=== PATIENT | female | born 1970 | race Caucasian/White ===

== ENCOUNTER → 2018-08-18 | Outpatient (CLI) | payer BC | LOC: FIMAGING 11:34 | PROVIDERS: ATTEND Orthopaedic Surgery | DX: Z01.818 Encounter for other preprocedural examination (principal); M17.12 Unilateral primary osteoarthritis, left knee ==

== ENCOUNTER 2018-08-30 06:13 | Observation (INO) | payer BC ==
--- NOTE | 2018-08-30 05:56 | PDHPUP ---
History & Physical Update H&P update statement: This history and physical update is based on an assessment of the patient which was completed after admission or registration (within 24 hours), but prior to the surgery/procedure. H&P update: H&P reviewed & patient examined, no change in patient's condition since H&P completed
[~2018-08-30 06:13] MED LIST: ROPIVACAINE 0.2% 80 MG, EPINEPHrine 0.2 MG, KETOROLAC TROMETHAMINE 30 MG in SYRINGE 0 ML IU ONE; TRANEXAMIC ACID 3,000 MG in NS (SYRINGE) 50 ML IRR ONE
[2018-08-30] MEDS ORDERED: FAMOTIDINE 20 MG TAB PO ONE (06:26)
[2018-08-30] MEDS ORDERED: DEXAMETHASONE 4 MG/ML VIAL IVP ONE (06:26)
[2018-08-30] MEDS ORDERED: LR 1,000 ML IV ONE (06:26)
[2018-08-30] MEDS ORDERED: ceFAZolin 2 GM/DEXTROSE 100 ML IV ONE (06:26)
[2018-08-30] MEDS ORDERED: ACETAMINOPHEN 325 MG TAB PO ONE (06:26)
[2018-08-30] MEDS ORDERED: MIDAZOLAM 2 MG/2 ML VIAL IVP ONE (06:38)
--- NOTE | 2018-08-30 06:39 | PDANEPAE ---
ANE Past Medical History - Cardiovascular History Hx Hypertension: No Hx Arrhythmias: No Hx Chest Pain: No Hx Coronary Artery / Peripheral Vascular Disease: No Hx CHF / Valvular Disease: No Hx Palpitations: No - Pulmonary History Hx COPD: No Hx Asthma/Reactive Airway Disease: No Hx Recent Upper Respiratory Infection: No Hx Oxygen in Use at Home: No Hx Sleep Apnea: Yes Sleep Apnea Screening Result - Last Documented: Positive Pulmonary History Comment: kush positive- no devices currently - Neurologic History Hx Cerebrovascular Accident: No Hx Seizures: No Hx Dementia: No - Endocrine History Hx Diabetes: No Hypothyroid: No Hyperthyroid: No Obesity: yes, moderate - Renal History Hx Renal Disorders: No - Liver History Hx Hepatic Disorders: No - Neurological & Psychiatric Hx Hx Neurological and Psychiatric Disorders: No - Cancer History Hx Cancer: No - Congenital Disorder History Hx Congenital Disorders: No - GI History GERD: no Hx Gastrointestinal Disorders: No - Other Health History Other Health History: wears glasses or contacts. dry skin. seasonal allergies - Chronic Pain History Chronic Pain: Yes - Surgical History Prior Surgeries: 03/2018 cartiva implant on right big toe. left knee 1997 acl replacement. 2006 torn acl ANE Review of Systems Review of Systems: - Exercise capacity Exercise capacity: <4 METS METS (RN): 4 METS ANE Patient History - Allergies Allergies/Adverse Reactions: No Known Allergies Allergy (Verified 08/14/18 12:26) - Home Medications Home Medications: DIAZEPAM 08/14/18 [Last Taken Unknown] Flonase Allergy Relief 08/14/18 [Last Taken Unknown] Ibuprofen 08/14/18 [Last Taken Unknown] Meloxicam 08/14/18 [Last Taken Unknown] - Anes Hx Anes Hx: no prior problems - Smoking Hx Smoking Status: Never smoked - Alcohol Use Alcohol Use: Rarely - Family Anes Hx Family Anes Hx: neg - N/A Family Hx Anesthesia Complications: none ANE Labs/Vital Signs - Vital Signs Height: 160.02 cm Weight: 90.718 kg ANE Physical Exam - Airway Neck exam: FROM Mallampati Score: Class 2 Mouth exam: normal dental/mouth exam - Pulmonary Pulmonary: no respiratory distress, no rales or rhonchi, clear to auscultation - Cardiovascular Cardiovascular: regular rate and rhythym, no murmur, rub, or gallop - ASA Status ASA Status: II ANE Anesthesia Plan Anesthesia Plan: MAC, spinal Total IV Anesthesia: No
[2018-08-30] MEDS ORDERED: TRANEXAMIC ACID 1,000 MG/10 ML VIAL ONE (06:53)
[2018-08-30] MEDS ORDERED: TRANEXAMIC ACID 3,000 MG/50 ML BAG IRR ONE (06:55)
[2018-08-30] MEDS ORDERED: fentaNYL 100 MCG/2 ML INJ ONE (07:06)
[2018-08-30] MEDS ORDERED: BUPIVACAINE/DEXTROSE 7.5MG/ML 2 ML SPINAL AMP SP ONE (07:06)
[2018-08-30] MEDS ORDERED: PROPOFOL/EMULSION 500 MG/50 ML BOTTLE IV ONE ×2 (07:06→07:44)
[2018-08-30] MEDS ORDERED: PHENYLEPHRINE HCL 100 MCG/ML SYR IVP PRN (07:51)
[2018-08-30] MEDS ORDERED: NALOXONE HCL 0.4 MG/ML INJ IVP PRN (07:51)
[2018-08-30] MEDS ORDERED: LR 500 ML IV PRN (07:51)
[2018-08-30] MEDS ORDERED: ONDANSETRON 4 MG/2 ML VIAL IVP PRN ×2 (07:51→08:46)
[2018-08-30] MEDS ORDERED: PROMETHAZINE HCL 25 MG/ML INJ IVP PRN ×2 (07:51→08:46)
[2018-08-30] MEDS ORDERED: ROPIVACAINE HCL 150 MG/30 ML INJ ONE (08:40)
[2018-08-30] MEDS ORDERED: diphenhydrAMINE 25 MG CAP PO PRN (08:46)
[2018-08-30] MEDS ORDERED: LACTULOSE 20 GM/30 ML UDCUP PO PRN (08:46)
[2018-08-30] MEDS ORDERED: BISACODYL 10 MG SUPP PR PRN (08:46)
[2018-08-30] MEDS ORDERED: DIPHENOXYLATE/ATROPINE LOMOTIL 1 TAB PO PRN (08:46)
[2018-08-30] MEDS ORDERED: MAGNESIUM HYDROXIDE 30 ML UDCUP PO PRN (08:46)
[2018-08-30] MEDS ORDERED: CYCLOBENZAPRINE 10 MG TAB PO PRN (08:46)
[2018-08-30] MEDS ORDERED: POLYETHYLENE GLYCOL 3350 17 GM PKT PO PRN (08:46)
[2018-08-30] MEDS ORDERED: TEMAZEPAM 15 MG CAP PO PRN (08:46)
[2018-08-30] MEDS ORDERED: METOCLOPRAMIDE 10 MG/2 ML VIAL IVP PRN (08:46)
[2018-08-30] MEDS ORDERED: PROMETHAZINE HCL 25 MG SUPPR PR PRN (08:46)
[2018-08-30] MEDS ORDERED: ONDANSETRON DISINTEGRATING 4 MG TAB PO PRN (08:46)
--- NOTE | 2018-08-30 08:46 | POSTOPPROG ---
Post Op Note Date of Operation: 08/30/18 Surgeon: Gregorio Hook Manager Android: sukhi hook PA-C Anesthesiologist: dr. pappas Anesthesia: Spinal, Other (Specify) (adductor canal block) Pre-op Diagnosis: L knee OA Post-op Diagnosis: same Indication: left knee pain Procedure: L TKA robot assisted Findings: severe knee OA Inf/Abcess present in the surg proc area at time of surgery?: No EBL: 50-100
[2018-08-30] MEDS ORDERED: LR 1,000 ML IV SCH (09:00)
--- NOTE | 2018-08-30 10:06 | POSTANESTH ---
Post Anesthetic Evaluation Cardiovascular Status: Normal, Stable Respiratory Status: Normal, Stable Level of Consciousness/Mental Status: Can Participate in Eval Pain Control: Adequate, Prn Tx Ordered Nausea/Vomiting Control: Adequate, Prn Tx Ordered Complications Possibly Related to Anesthesia: None Noted
[2018-08-30] MEDS: oxyCODONE IR 5 MG TAB PO PRN ×3 (10:07→21:15)
[2018-08-30] MEDS: SENNOSIDES/DOCUSATE SODIUM TAB PO SCH ×2 (10:22→21:17)
[2018-08-30] MEDS: ACETAMINOPHEN 325 MG TAB PO SCH ×3 (12:04→23:52)
[2018-08-30] MEDS ORDERED: Fluticasone Nasal [Flonase Nasal Spray] 1 SPRAYS NASAL PRN (13:57)
[2018-08-30] MEDS ORDERED: DIAZEPAM 5 MG TAB PO PRN (13:57)
[2018-08-30] MEDS: ceFAZolin 2 GM/DEXTROSE 100 ML IV SCH ×2 (14:56→21:17)
[2018-08-30] MEDS: ASPIRIN 81 MG CHEWABLE TAB PO SCH (21:17)
[2018-08-30] MEDS: FAMOTIDINE 20 MG TAB PO SCH (21:17)
[2018-08-31] MEDS: ACETAMINOPHEN 325 MG TAB PO SCH ×2 (05:28→12:11)
[2018-08-31 07:33] VITALS: BP 128/92
[2018-08-31] MEDS: FAMOTIDINE 20 MG TAB PO SCH (08:03)
[2018-08-31] MEDS: ASPIRIN 81 MG CHEWABLE TAB PO SCH (08:03)
[2018-08-31] MEDS: SENNOSIDES/DOCUSATE SODIUM TAB PO SCH (08:03)
[2018-08-31] MEDS: oxyCODONE IR 5 MG TAB PO PRN ×2 (08:04→12:11)
--- NOTE | 2018-08-31 10:27 | GOP ---
DATE OF OPERATION: 08/30/2018 SURGEON: Marylou Ellis MD CASEWORKER PROTECTIVE SERVICES: JIM Chow. ANESTHESIA: Spinal. PREOPERATIVE DIAGNOSIS: Left knee osteoarthritis. POSTOPERATIVE DIAGNOSIS: Left knee osteoarthritis. PROCEDURE PERFORMED: Left total knee arthroplasty with computer navigation, robotic assist. FINDINGS: ESTIMATED BLOOD LOSS: 30 cc. INDICATIONS: The patient is a 48-year-old female with severe and progressive pain and deformity of the left knee unresponsive to conservative care. The risks and benefits of surgical intervention were explained in detail. DESCRIPTION OF PROCEDURE: The patient was brought to the operative room and placed on the table in the supine position. Spinal anesthesia was induced without difficulty. A pneumatic tourniquet was applied about the left proximal thigh, and the leg was prepped and draped in a sterile fashion. The leg kaplan was applied. After exsanguination by elevation the tourniquet was inflated to 250 mmHg. Incision was made anterior medial from the tibial tuberosity to a point 2 cm proximal to the superior pole of the patella. Medial parapatellar arthrotomy was carried out from the superior pole of the patella and posteriorly in line with the fibers of the Type II VMO. The medial collateral ligament was elevated and the infrapatellar fat pad was resected. The patella was everted and the articular surface was excised. A 32 mm patellar button was placed. Attention was turned first to the distal aspect of the femur. After exposure of the femur, 2 half pins were placed for fixation of the femoral array. In a similar fashion, 2 pins were placed anteromedial on the tibia for fixation of the tibial array. External land marking and registration of the hip center was performed without difficulty. Internal femoral and tibial registration was carried out without difficulty and the femoral and tibial checkpoints were placed and verified for accuracy. Attention was turned to the femur. The foot print for the size 2 femoral component was cut with the saw using the [employer] robotic system and verified for accuracy against the CT based plan. In a similar fashion, the saw was used to cut the footprint for the size 3 tibial component using the [employer] system and verified for accuracy against the CT based plan. The tibial articular surface was excised without difficulty. The knee was extended and the remnants of the medial and lateral meniscus were excised. The posterior capsule was injected with ropivacaine, epinephrine and Toradol. A size 3 tibial tray was positioned. Trial reduction was then carried out. There was excellent range of motion, alignment, and stability using the 3 x 11 mm polyethylene. All trials were then removed. The joint was thoroughly irrigated and carefully dried. The press-fit components were implanted. The permanent 3 x 11 mm polyethylene was placed without difficulty. The tourniquet was deflated and all bleeders were coagulated. The wound was thoroughly irrigated and closed using interrupted sutures of 2-0 Vicryl for the joint capsule. The subcu was closed with 3-0 Vicryl and the skin with 4-0 Monocryl. Dermabond and Steri-Strips were applied followed by a compressive dressing. The patient was then moved from the operating room to the recovery room in good condition, having tolerated the procedure well. PATHOLOGY: Severe medial patellofemoral osteoarthritis. /[id number]/MODL MTDD
--- NOTE | 2018-08-31 17:09 | SOAPPROG ---
SOAP Progress Note Assessment/Plan: Assessment: Patient is doing well POD 1 s/p L TKA Pain management: pain is well controlled on oral pain meds. VTE ppx: recommend aspirin 81 mg BID for 4 weeks, cont JESSICA and SCDs Anemia: level is expected initially postop. Asymptomatic. Continue to monitor D/c planning: d/c to home today pending release from PT Plan: 08/31/18 17:09 Subjective: patient is doing well, denies SOB ,chest pain and n/V Objective: Vital Signs Temp Pulse Resp BP Pulse Ox 36.6 C 71 15 128/92 H 96 08/31/18 07:33 08/31/18 07:33 08/31/18 07:33 08/31/18 07:33 08/31/18 07:33 Laboratory Results 08/31/18 05:16 08/30/18 08/31/18 09/01/18 05:59 05:59 05:59 Intake Total 3075 Output Total 2425 Balance 650 LLE; incision dressing is clean and dry, NVI, +pf/df ICD10 Worksheet Patient Problems: Problems Problem Status Onset Primary localized osteoarthritis of left knee Acute
--- NOTE | 2018-09-01 06:05 | GDS ---
ADMISSION DIAGNOSIS: Left knee osteoarthritis. DISCHARGE DIAGNOSIS: Left knee osteoarthritis. PROCEDURE: Left total knee arthroplasty, robotic assisted. VTE PROPHYLAXIS: Recommend aspirin 81 mg for 4 weeks. BRIEF DESCRIPTION OF HOSPITAL STAY: Patient was admitted for an elective joint arthroplasty. The pa manuel tolerated the procedure well and has passed physical therapy. The patient was given appropriat e antibiotic prophylaxis and venous thromboembolism prophylaxis. The patient's pain was well control led on oral pain medication, patient was holding down food, and had urinated. Decision was made to d ischarge the patient. The patient was given post-operative prescriptions pre-operatively. PLAN: To follow up as scheduled with Dr. Ellis's office September 21 at 11:15. /[id number]/MODL
== END 2018-08-31 12:42 | disposition home or self-care (01) ==
LOC: F3N 06:13
PROVIDERS: ADMIT Orthopaedic Surgery; ATTEND Orthopaedic Surgery
DX: M17.12 Unilateral primary osteoarthritis, left knee (principal); G47.33 Obstructive sleep apnea (adult) (pediatric); E66.9 Obesity, unspecified; Z68.35 Body mass index [BMI] 35.0-35.9, adult
CPT/HCPCS: 20985; 27447; 73560; 97110; 97116; 97161; 97530; G0378; J0171; J0690; J1100; J1885; J2250; J2704; J2795; J3010